=== PATIENT | female | born 1985 | race Caucasian/White ===

== ENCOUNTER 2022-02-28 03:07 | Emergency (ER) | payer SELFPAY ==
[~2022-02-28] VITALS: Ht 170.2 cm; Wt 61.2 kg
--- NOTE | 2022-02-28 03:10 | NUR ---
[facility], PT TO CHAIR A
[2022-02-28 03:11] VITALS: BP 132/68
[2022-02-28 03:18] VITALS: BP 132/68
--- NOTE | 2022-02-28 03:18 | NUR ---
PATIENT BIB [place] [employer]. PATIENT EXAMINED BY DR. FLANNERY. PATIENT MEDICALLY CLEARED AND RELEASED IN CUSTODY IN STABLE CONDITION. ORIGINAL PRE-BOOK FORM GIVEN TO OFFICER SIRENA.
== END 2022-02-28 03:18 ==
LOC: MED 03:07
DX: Z02.89 Encounter for other administrative examinations (principal); Z98.890 Other specified postprocedural states; V89.2XXA Person injured in unspecified motor-vehicle accident, traffic, initial encounter; Y93.89 Activity, other specified; Y92.89 Other specified places as the place of occurrence of the external cause; Y99.8 Other external cause status
CPT/HCPCS: 99283